=== PATIENT | female | born 1975 | race Caucasian/White ===

== ENCOUNTER → 2018-12-24 | Outpatient (CLI) | payer OTHER, SELFPAY ==
--- NOTE | 2018-12-24 11:14 | US_ITS ---
STUDY: ULTRASOUND OF THE FEMALE PELVIS - COMPLETE REASON FOR EXAM: Female, 43 years old. Abnormal bleeding LMP: 12/24/2018 TECHNIQUE: Transabdominal and Transvaginal TECHNICAL QUALITY: Adequate. COMPARISON: None. FINDINGS: The uterus is anteverted and is in a midline position. The uterus measures 9.7 x 6.0 x 5.1 cm. The endometrium measures 6.8 mm in thickness, and is hyperechoic. There is no demonstrated endometrial mass. There is uterine fibroid measuring 3.3 x 3.5 x 3.8 cm. I.U.D. - The patient does not have an I.U.D. The right ovary is visualized. The right ovary measures 3.1 x 2.1 x 1.6 cm. There is no right ovarian cyst or ovarian mass. There is no visualized right adnexal mass or complex lesion. There is normal arterial and normal venous vascularity. The left ovary is visualized. The left ovary measures 2.7 x 2.1 x 1.2 cm. There is no left ovarian cyst or ovarian mass. There is no visualized left adnexal mass or complex lesion. There is normal arterial and normal venous vascularity. There is no fluid in the cul-de-sac. Polycystic ovary disease: No. US/Pelvic (Non ) IMPRESSION: There is a uterine fibroid measuring 3.3 x 3.5 x 3.8 cm. The ovaries appear normal. There is no fluid in the cul-de-sac. Electronically Signed: Jared Cole MD at 16:31 EDT , Service support ,
--- NOTE | 2018-12-24 11:14 | US_ITS ---
STUDY: ULTRASOUND OF THE FEMALE PELVIS - COMPLETE REASON FOR EXAM: Female, 43 years old. Abnormal bleeding LMP: 12/24/2018 TECHNIQUE: Transabdominal and Transvaginal TECHNICAL QUALITY: Adequate. COMPARISON: None. FINDINGS: The uterus is anteverted and is in a midline position. The uterus measures 9.7 x 6.0 x 5.1 cm. The endometrium measures 6.8 mm in thickness, and is hyperechoic. There is no demonstrated endometrial mass. There is uterine fibroid measuring 3.3 x 3.5 x 3.8 cm. I.U.D. - The patient does not have an I.U.D. The right ovary is visualized. The right ovary measures 3.1 x 2.1 x 1.6 cm. There is no right ovarian cyst or ovarian mass. There is no visualized right adnexal mass or complex lesion. There is normal arterial and normal venous vascularity. The left ovary is visualized. The left ovary measures 2.7 x 2.1 x 1.2 cm. There is no left ovarian cyst or ovarian mass. There is no visualized left adnexal mass or complex lesion. There is normal arterial and normal venous vascularity. There is no fluid in the cul-de-sac. Polycystic ovary disease: No. US/Transvaginal Non- IMPRESSION: There is a uterine fibroid measuring 3.3 x 3.5 x 3.8 cm. The ovaries appear normal. There is no fluid in the cul-de-sac. Electronically Signed: Jared Cole MD at 16:31 EDT , Service support ,
== END | disposition home or self-care (01) ==
LOC: US 11:11
PROVIDERS: Family Provider Family Medicine; PCP Family Medicine; Referring Provider Nurse Practitioner; Visit Provider Nurse Practitioner
DX: N93.9 Abnormal uterine and vaginal bleeding, unspecified (principal)
CPT/HCPCS: 76830; 76856; 93976

== ENCOUNTER → 2020-01-29 07:49 | Outpatient (CLI) | payer OTHER, SELFPAY ==
--- NOTE | 2020-01-29 07:55 | US_ITS ---
STUDY: ULTRASOUND OF THE FEMALE PELVIS - COMPLETE REASON FOR EXAM: Female, 45 years old. ENLARGED UTERUS LMP: TECHNIQUE: Transabdominal and Transvaginal TECHNICAL QUALITY: Adequate. COMPARISON: None. FINDINGS: The uterus is anteverted and is in a midline position. The uterus measures 9.8 x 6.4 x 5.3 cm. Normal uterine cervix. The endometrium measures 5 mm in thickness, and is hyperechoic. There is no demonstrated endometrial mass. There is there is 4.3 x 4.6 x 4.4 heterogeneous myometrial mass consistent with a fibroid. I.U.D. - The patient does not have an I.U.D. The right ovary is visualized. The right ovary measures 2.4 x 2.8 x 2.2 cm. There is no right ovarian cyst or ovarian mass. There is no visualized right adnexal mass or complex lesion. There is normal arterial and normal venous vascularity. The left ovary is visualized. The left ovary measures 2.8 x 1.8 x 1.8 cm. There is no left ovarian cyst or ovarian mass. There is no visualized left adnexal mass or complex lesion. There is normal arterial and normal venous vascularity. There is no fluid in the cul-de-sac. The pre void volume of the bladder was 496 ml. US/Pelvic (Non ) IMPRESSION: There is there is 4.3 x 4.6 x 4.4 heterogeneous myometrial mass consistent with a fibroid. Electronically Signed: Andrew Cortes, at 14:23 EDT Tel , Service support ,
--- NOTE | 2020-01-29 07:55 | US_ITS ---
STUDY: ULTRASOUND OF THE FEMALE PELVIS - COMPLETE REASON FOR EXAM: Female, 45 years old. ENLARGED UTERUS LMP: TECHNIQUE: Transabdominal and Transvaginal TECHNICAL QUALITY: Adequate. COMPARISON: None. FINDINGS: The uterus is anteverted and is in a midline position. The uterus measures 9.8 x 6.4 x 5.3 cm. Normal uterine cervix. The endometrium measures 5 mm in thickness, and is hyperechoic. There is no demonstrated endometrial mass. There is there is 4.3 x 4.6 x 4.4 heterogeneous myometrial mass consistent with a fibroid. I.U.D. - The patient does not have an I.U.D. The right ovary is visualized. The right ovary measures 2.4 x 2.8 x 2.2 cm. There is no right ovarian cyst or ovarian mass. There is no visualized right adnexal mass or complex lesion. There is normal arterial and normal venous vascularity. The left ovary is visualized. The left ovary measures 2.8 x 1.8 x 1.8 cm. There is no left ovarian cyst or ovarian mass. There is no visualized left adnexal mass or complex lesion. There is normal arterial and normal venous vascularity. There is no fluid in the cul-de-sac. The pre void volume of the bladder was 496 ml. US/Transvaginal Non- IMPRESSION: There is there is 4.3 x 4.6 x 4.4 heterogeneous myometrial mass consistent with a fibroid. Electronically Signed: Andrew Cortes, at 14:23 EDT Tel , Service support ,
== END ==
PROVIDERS: PCP Family Medicine
DX: N85.2 Hypertrophy of uterus (principal)
CPT/HCPCS: 76830; 76856

== ENCOUNTER 2020-05-27 16:00 | Observation (INO) | payer OTHER, SELFPAY ==
--- NOTE | 2020-05-21 16:35 | HP.PCM_ITS ---
History and Physical Date of Admission: 05/27/20 Office Visit 05/19/2020 OB/Gynecology Sandee Randolph NEWSPAPER COPY EDITOR Abnormal uterine bleeding (AUB) +2 more Dx Pre-Op Visit; Referred by Sandee Randolph Reason for Visit Progress Notes Expand AllCollapse All Pre-Op History and Physical ? HPI: The patient is a 45 year old female presenting for pre-operative visit. She is scheduled for TLH, Bilateral salpingectomy cystoscopy for AUB fibroid uterus (submucosal) on 05/27/20. Procedure discussed along with risks, benefits and complications. Other alternatives discussed for management. Consent form signed? Yes. ? ? PAST MEDICAL HISTORY PAST MEDICAL HISTORY Diagnosis Date ? Hyperlipidemia ? ? ? PAST SURGICAL HISTORY PAST SURGICAL HISTORY Procedure Laterality Date ? COLONOSCOP W/ OR W/O BRS SPEC ? 01/12/16 ? Colonoscopy mac ? COLONOSCOP W/ OR W/O BRS SPEC ? 01/13/2019 ? Colonoscopy ? PAST SURGICAL HISTORY OF Left , , 2014 ? Fiboadenoma removed from left breast ? TONSILLECTOMY HX ? 1992 ? ? ? CURRENT MEDICATIONS Current Outpatient Medications Medication Sig Dispense Refill ? Fe gluconate/vit C/folic acid (IRON-C ORAL) Take by mouth. 2-3 times a week ? ? ? vitamin b complex (B-COMPLEX) tab 2 x a week ? ? ? Calcium Carb-Vit D3-Magnesium (CORAL CALCIUM) 250-200-125 mg-unit-mg cap 1,000 IU 3 x a week ? 0 ? No current facility-administered medications for this visit. ? ? ALLERGIES: Asprin [Aspirin] ? PERSONAL HISTORY: SOCIAL HISTORY Social History ? Tobacco Use ? Smoking status: Never Smoker ? Smokeless tobacco: Never Used Substance Use Topics ? Alcohol use: No ? Drug use: No ? FAMILY HISTORY: FAMILY HISTORY FAMILY HISTORY Problem Relation Age of Onset ? Hypertension Mother ? ? Colon Cancer Father 70 ? Hypertension Maternal Grandmother ? ? Heart Maternal Grandmother 56 ? Colon Cancer Paternal Grandmother 82 ? other (Stomach Cancer) Paternal Grandfather 77 ? Colon Cancer Paternal Aunt 52 ? ? REVIEW OF SYMPTOMS: negative except as noted above PHYSICAL EXAMINATION: ? VITALS: Blood pressure 138/74, height 4' 11.5 (1.511 m), weight 119 lb (54 kg), last menstrual period 05/11/2020. ? GENERAL: The patient is well nourished, well hydrated in no acute distress. , The patient is oriented to time, place, and person. NECK: full range of motion Neuro: Alert and oriented x 3 ? PELVIC ULTRASOUND: uterus 9.7cm with 3.4cm submucosal fibroid. ? IMPRESSION: Fibroid uterus, AUB ? PLAN: TLH, Bilateral salpingectomy, Cystoscopy. ERAS reviewed Will order POST OP MEDS Pt has been counseled on risks/benefits and alternatives of surgery including but not limited to anesthesia, bleeding, infection, injury to pelvic structures including bowel, bladder, ureters and vessels. Pt wishes to proceed with surgery at this time. COVID and elective surgery reviewed with patient ? I have reviewed and updated past medical and surgical history, medications and allergies Sandee Randolph MD Procedure Criteria Procedure Type: Elective COVID Risk Discussion: The surgeon/proceduralist and patient have discussed in detail the risk of exposure to and/or potential harm posed by the COVID-19 virus with having a surgery/procedure at this time versus the risk of delaying the surgery/procedure. It is not possible to know either the risk of delaying the surgery or procedure or chance of getting an infection with perfect accuracy, but a joint decision was made between the patient and the surgeon/proceduralist to proceed at this time with the scheduled surgery/procedure as indicated on the consent form.
[2020-05-25 13:55] LABS: Hematocrit 38.8 % (37-47); Hemoglobin 12.5 g/dL (12.0-15.0); Mean Corp Hgb Conc 32.2 g/dL (32-36); Mean Corpuscular Volume 96.3 fL (81-99); Mean Platelet Vol. 10.4 fl (6.2-12.0); Platelet Count 306 K/mm3 (150-450); RBC Distribution Width CV 13.7 % (11.6-14.6); RBC Distribution Width SD 48.5 fl (35.1-43.9); Red Blood Count 4.03 M/mm3 (4.2-5.4); White Blood Count 5.3 K/mm3 (4.4-11.0)
[2020-05-25 14:02] LABS: Prothrombin Time (Protime)PT. 12.6 SECONDS (11.7-14.9)
[2020-05-25 14:03] LABS: Partial Thromboplast Time 29.2 Seconds (24.1-36.2)
[2020-05-25 14:43] LABS: Magnesium 2.1 mg/dL (1.6-2.6); Thyroid Stim Hormone (TSH) 1.41 uIU/mL (0.358-3.74)
[2020-05-27] VITALS (19 sets, daily range): BP systolic 90–130; BP diastolic 41–69; PULSE 67–91; RESP 16–122; TEMP 36.5–37.7; O2SAT 97–100; BMI 23.4
--- NOTE | 2020-05-27 | HYST_PTH ---
PATIENT: AMADO ESCALANTE LOC: [facility] U#:[id number] AGE/SX: 45/F ROOM: [facility]314 RE05/27/[address]: Dr. Sandee Saleem, MDDOB: 1975 BED: 1 DIS: 05/28/2020 SPEC #: [id number] RECD: 05/27/20 11:23 STATUS: TODD COLE #: [id number] FILIBERTO: 05/27/20 00:[address]: Sandee Saleem DEPT: SURGICAL PATHOLOGY RECD BY: Yoni Carreno ENTERED: 05/27/20 13:03 SP TYPE: HYSTERECT OTHR DR: Dr. Svetlana Bourgeois MD Tissues: Uterus, NOS Procedures: Surgery Specimen Level V HEADER OPERATION: Hysterectomy, TLH, salpingectomy, cystoscopy PRE-OP DIAGNOSIS: Abnormal uterine bleeding TISSUE SUBMITTED: Uterus, bilateral fallopian tubes MICROSCOPIC DIAGNOSIS Uterus and bilateral fallopian tubes, hysterectomy and bilateral salpingectomy: Cervix - mild chronic cystic cervicitis. Endometrium - proliferative endometrium. Myometrium - intramural and submucosal leiomyomas (largest measuring 3.8 cm in greatest dimension). Bilateral fallopian tubes - no pathologic diagnosis. Right paratubal cyst. SJ:molina 05/28/20 MICROSCOPIC DESCRIPTION Slides are reviewed. GROSS DESCRIPTION Received in fixative is one container labeled with the patient's name and designated uterus. The specimen consists of a uterus with attached cervix and attached right and left fallopian tubes. The uterus with cervix measures 9.5 x 6.5 x 5 cm and weighs 153 gm. The ectocervix is unremarkable. The endocervical canal measures 3.3 cm in length and is grossly unremarkable. The triangular endometrial cavity measures 4.5 x 3.6 cm. The velvety, rojo endometrium measures up to 0.2 cm in average thickness. The myometrium measures 2 cm in average thickness and contains multiple rubbery rojo-white nodules ranging in size from 0.7 to 3.8 cm. The nodules are intramural and submucosal in location. The right and left fallopian tubes are similar in appearance averaging 6 cm in length and 0.7 cm in average diameter. Both have normal fimbriated ends. The soft tissue adjacent to the fimbriated end in the right fallopian right fallopian tube contains a paratubal cyst measuring 1 cm and containing clear fluid. Instructional Support Technician sections are submitted in ten cassettes as follows: 1 - anterior cervix, 2 - posterior cervix, 3?& 4 - anterior uterine wall, 5 & 6 - posterior uterine wall, 7 - largest myometrial mass, 8 - smaller myometrial masses, 9 - right fallopian tube and paratubal cyst, 10 - left fallopian tube. / AM:molina 05/27/20 TC:1 CPT: 05301
[2020-05-27 06:41] LABS: Internal QC Validated? YES +Cl - CLEAR BKGD; Pregnancy, Urine Negative Negative
[2020-05-27] MEDS: dexAMETHasone 10 MG/ML Vial 8 MG IV (06:47)
[2020-05-27] MEDS: Enoxaparin 40 MG/0.4 ML Syringe SC (06:48)
[2020-05-27] MEDS: Scopolamine 1mg/72hr Patch 1 PATCH TD (06:50)
[2020-05-27 06:56] LABS: Bedside Glucose 85 mg/dL (70-110)
[2020-05-27] MEDS: Acetaminophen 500 MG Tablet 1000 MG PO ×3 (06:56→18:14)
[2020-05-27] MEDS: Celecoxib 200 MG Capsule 400 MG PO (06:56)
[2020-05-27] MEDS: Phenazopyridine 95 MG Tablet 190 MG PO (06:56)
[2020-05-27] MEDS: Gabapentin 600 MG Tablet PO (06:56)
[2020-05-27] MEDS: Lactated Ringers 1,000 ML 40 ML IV (06:57)
[2020-05-27] MEDS: Cefazolin 2 GM in 0.9% Normal Saline 100 ML IV (07:33)
[2020-05-27] MEDS: Bupivacaine Mpf 0.5% 30 ML VIAL (07:56)
[2020-05-27] MEDS: Lactated Ringers 1,000 ML 70 ML IV ×3 (09:15→14:04)
--- NOTE | 2020-05-27 10:00 | PCM.OPRPT ---
Report of Operation Date of Procedure: 05/27/20 - start: end 1001 Pre-Operative Diagnosis: aub, fibroid uterus Post-Operative Diagnosis: same Surgery/Procedure Performed:: TLH, Bilateral salpingectomy, Cystoscopy Description of Surgical Findings:: uterus, tubes and ovaries appear normal. pointer machine operator: Rebeca Chavez Type of Anesthesia:: General Special Medications: 0.5% marcaine Specimen's removed: Uterus, cervix, bilatera tubes Drains: None Estimated Blood Loss (mL): 100 Fluids Replaced: 1700 Description of Procedure: Patient take to OR and prepped and draped in usual sterile fashion in dorsal lithotomy position with her arms tucked in a neurologically safe and neutral position. The uterus sounded to 9 cm. The children's librarian uterine manipulator was sutured into place at 12:00 position and monae were placed. Attention was turned to the abdomen. All port sites were infiltrated with 0.5% marcaine before the incisions were made. The anterior abdominal wall was tented up with towel clamps and using a direct entry approach a 5 mm intraumbilical port was placed. Intraperitoneal placement was confirmed with the laparoscope and the pneumoperitoneum was created. The patient was placed in Trendelenburg and 5 mm right and left lower quadrant ports were placed under direct visualization. Air seal rapid insufflator was used. The bowel was swept away. Ovaries appeared normal. The mesosalpinx starting at fimbriated end were grasped, clamped, sealed and transected with the Ligasure. The round ligaments were divided. The anterior peritoneum was dissected down to create the bladder flap with blunt dissection and the LigaSure. The uterine arteries were isolated, clamped, sealed and cut. There was minimal back bleeding from the uterus. Straight bites on uterine arteries performed to drop them off the cuff. The manipulator was used as guide to create colpotomy using monopolar tip of LigaSure. once specimen was removed attention was turned to vaginal portion. The specimen was handed off. The cuff was closed with interrupted 0-vicryl figure of 8 sutures. Small oozing on cuff- posterior cuff was run with 2-0 vicryl. Cystoscopy was performed bilateral ureters were visualized with good efflux. bladder was intact. monae replaced and sponge stick placed in vagina. The pneumoperitoneum was recreated. Oozing on right side and middle of cuff. multiple figure of eight sutures placed below to help achieve hemostasis. Hemalock clamps were placed on right side of cuff and good hemostasis was appreciated. Floseal placed where the clamps were placed. Giuseppe was placed over other pedicles. Areas were monitored and appeared to be hemostatic. The skin incisions were closed with skin glue and 3-0 monocryl in the LLQ port site. Cystoscopy was repeat and again bilateral efflux noted and bladder intact. The vaginal sweep was completed by me negative . Grafts/Implants Used: hemalock clips Grafts/Implants Used: hemalock clips - Complications none - Admit VTE Documentation VTE Present on Admission: Yes VTE Mechan Device Prophylaxis: SCD's VTE Pharm Prophylaxis ordered?: Yes
--- NOTE | 2020-05-27 10:09 | DCINST_ITS ---
Discharge Diet: No Restrictions Discharge Activity: Return to Normal Activity, May Not Drive - while taking narcotic pain medications., May Shower May shower in (days): 1 May resume sexual activity in: 6-8 weeks Lifting Restrictions: 20 Call your doctor if your incision/area has: Continuous Slow Oozing, Sudden Increased Bleeding, Increased Pain/ Swelling, Increased Redness, Foul Smelling Discharge Call your doctor if you observe: Fever of 101 or Higher, Inability to urinate, Inability to have a bowel movement, Using more than one pad per hour Cleanse incision/area with: Keep Dressing Clean & Dry, - - do not pick off skin glue- you may shower, let soap and water run over incision sites. dab dry. Allergies/Adverse Reactions: Allergies aspirin Adverse Reaction (Verified 05/20/20 09:18) Nausea/Vom/Diarrhea Medications to take at Discharge Calcium Carbonate/Magnesium Ox [Super Zander-Mag Tablet] 1 ea PO MOWEFR 05/20/20 Cholecalciferol (Vitamin D3) [Vitamin D3] 2,000 unit PO TUTH 05/20/20 Ferrous Sulfate [Iron] 325 mg PO DAILY 05/20/20 Multivitamin with Minerals [Multiple Vitamin] 1 ea PO DAILY 05/20/20 Vitamin B Complex 1 ea PO MOWEFR 05/20/20 Primary Care Physician: Svetlana Bourgeois MD [Primary Care Provider] - Test Results: Test results from this visit will be discussed in further detail at your follow- up appointment, if applicable. Please Follow Up With: Sandee Saleem MD When: 2 weeks post op [phone]
[2020-05-27] MEDS: Ketorolac 30 MG/ML Syringe IV ×2 (11:29→18:14)
[2020-05-27] MEDS: oxyCODONE 5 MG Tablet PO (13:00)
[2020-05-27 14:59] LABS: Hematocrit 30.6 % (37-47); Hemoglobin 9.7 g/dL (12.0-15.0); Mean Corp Hgb Conc 31.7 g/dL (32-36); Mean Corpuscular Hgb 30.4 pg (27.0-32.0); Mean Corpuscular Volume 95.9 fL (81-99); Mean Platelet Vol. 10.4 fl (6.2-12.0); Platelet Count 227 K/mm3 (150-450); RBC Distribution Width CV 13.8 % (11.6-14.6); RBC Distribution Width SD 48.7 fl (35.1-43.9); Red Blood Count 3.19 M/mm3 (4.2-5.4); White Blood Count 11.2 K/mm3 (4.4-11.0)
[2020-05-27 19:20] LABS: Absolute Lymphocyte Count 0.35 X10^3/uL (0.83-4.51); Absolute Neutrophil Count 8.2 X10^3/uL (2.0-7.7); Hematocrit 30.2 % (37-47); Hemoglobin 9.7 g/dL (12.0-15.0); Lymphocyte # 0.35 X10^3/ul (4.0); Lymphocyte % 3.9 % (19-41); Mean Corp Hgb Conc 32.1 g/dL (32-36); Mean Corpuscular Volume 96.5 fL (81-99); Mean Platelet Vol. 9.9 fl (6.2-12.0); Monocyte# 0.29 X10^3/uL; Monocyte% 3.3 % (0-10); NRBC Flagged by Analyzer 0 % (0-5); Neutrophil % 92.5 % (47-70); POSITIVE DIFFERENTIAL YES; Platelet Count 229 K/mm3 (150-450); RBC Distribution Width CV 13.9 % (11.6-14.6); RBC Distribution Width SD 49.1 fl (35.1-43.9); Red Blood Count 3.13 M/mm3 (4.2-5.4); White Blood Count 8.9 K/mm3 (4.4-11.0)
[2020-05-27 19:29] LABS: Differential Indicated SCAN CRITERIA MET
[2020-05-27 20:21] LABS: Anisocytosis RARE; Platelet Estimate ADEQUATE (ADEQ); Red Cell Morphology N CHROM NORMAL (NORM C&C)
[2020-05-27 20:22] LABS: Macrocytosis RARE
[2020-05-27] MEDS: Docusate Sodium 100 MG Capsule PO (22:09)
[2020-05-28] MEDS: Ketorolac 30 MG/ML Syringe IV ×2 (00:53→06:21)
[2020-05-28] MEDS: Acetaminophen 500 MG Tablet 1000 MG PO ×2 (00:53→07:59)
[2020-05-28 04:19] VITALS: BP 109/58; PULSE 83; RESP 18; TEMP 36.8; O2SAT 99
[2020-05-28] MEDS: Lactated Ringers 1,000 ML 70 ML IV (04:24)
--- NOTE | 2020-05-28 04:53 | PCS.PANDOC ---
PANDEMIC DOCUMENTATION INITIATED: Date: 05/27 Time: 1899
[2020-05-28] MEDS: 0.9% Saline Lock 10 ML Syringe IV (06:21)
--- NOTE | 2020-05-28 06:59 | NURSING ---
0600 dose of Tylenol 1,000mg for 05/28 is late d/t the maximum dosage of 4,000mg per 24 hours. unable to administer at this time
[2020-05-28 07:21] VITALS: O2SAT 98
--- NOTE | 2020-05-28 07:36 | PCM.PN.OB ---
Subjective: Patient seen at bedside, doing well. Patient reports improvement in dizziness. Ambulating well. Voiding well. Not passing any flatus at this point but is feeling like she will soon. Patient reports no nausea or vomiting. Patient is tolerating diet. - Physical Exam Vitals/I&O's: Vital Signs Temp Pulse Resp BP Pulse Ox 98.3 F 83 18 109/58 L 99 05/28/20 04:19 05/28/20 04:19 05/28/20 04:19 05/28/20 04:19 05/28/20 04:19 Oxygen Flow Rate (L/min) 6 Oxygen Delivery Method Room Air Weight: 53.6 kg Body Mass Index (BMI) 23.4 Intake and Output for Last 24 Hours 05/26/20 05/27/20 05/28/20 23:59 23:59 23:59 Intake Total 3263 / 3263 1993.83 / 1993.83 Output Total 1400 / 1400 600 / 600 Balance 1863 / 1863 1394.83 / 1394.83 General: Alert, Oriented x3 Abdomen: Soft, Non-Distended, - - appropriately tender. Incision sites are dry and intact Extremities: No Calf Tenderness Neurological: Cranial nerves II-XII grossly intact Microbiology Past 72 Hours 05/25/20 13:15 Interface Orders SARS-CoV-2 Antigen (Rapid) - Final Laboratory Results 05/27/20 14:47: WBC 11.2 H, RBC 3.19 L, Hgb 9.7 L, Hct 30.6 L, MCV 95.9, MCH 30.4, MCHC 31.7 L, RDW Std Deviation 48.7 H, RDW Coeff of Anil 13.8, Plt Count 227, MPV 10.4 05/27/20 19:11: WBC 8.9, RBC 3.13 L, Hgb 9.7 L, Hct 30.2 L, MCV 96.5, MCH 31.0, MCHC 32.1, RDW Std Deviation 49.1 H, RDW Coeff of Anil 13.9, Plt Count 229, MPV 9.9, Immature Gran % (Auto) 0.300, Neut % (Auto) 92.5 H, Lymph % (Auto) 3.9 L, Toombs % (Auto) 3.3, Eos % (Auto) 0.0, Baso % (Auto) 0.0, Absolute Neuts (auto) 8.2 H, Absolute Lymphs (auto) 0.35 L, Nucleated RBC % 0, Differential Comment SEE COMMENT, Platelet Estimate ADEQUATE, RBC Morphology N CHROM, Anisocytosis RARE, Macrocytosis RARE 05/28/20 07:14: WBC Pending, RBC Pending, Hgb Pending, Hct Pending, MCV Pending, MCH Pending, MCHC Pending, RDW Std Deviation Pending, RDW Coeff of Anil Pending, Plt Count Pending, Neut % (Auto) Pending, Absolute Neuts (auto) Pending Current Medications Acetaminophen (Acetaminophen 500 Mg Tablet) 1,000 mg PO Q6 [facility] Last Admin: 05/28/20 00:53 Dose: 1,000 mg Documented by: Docusate Sodium (Docusate Sodium 100 Mg Capsule) 100 mg PO BID [facility] Last Admin: 05/27/20 22:09 Dose: 100 mg Documented by: Lactated Ringer's () 1,000 mls @ 70 mls/hr IV .[id number] [facility] Stop: 05/28/20 10:11 Last Admin: 05/28/20 04:24 Dose: 70 mls/hr Documented by: Insulin Human Lispro (Insulin Lispro 100 Unit/Ml Insuln.Pen) 0 unit SC Q4H PRN PRN; Protocol PRN Reason: BG >/= 180, SEE PROTOCOL Ketorolac Tromethamine (Ketorolac 30 Mg/Ml Syringe) 30 mg IV Q6 [facility] Stop: 05/28/20 18:01 Last Admin: 05/28/20 06:21 Dose: 30 mg Documented by: Magnesium Chloride (Magnesium Chloride 64 Mg Delay Rel.Tablet) 128 mg PO DAILY PRN PRN PRN Reason: Constipation Nutritional Formula (Lactose Free) (Ensure Enlive 120 Ml Liquid) 120 ml PO TIDCM [facility] Last Admin: 05/27/20 17:58 Dose: Not Given Documented by: Ondansetron HCl (Ondansetron Odt 4 Mg Tablet) 4 mg PO Q6H PRN PRN PRN Reason: NAUSEA Oxycodone HCl (Oxycodone 5 Mg Tablet) 5 - 10 mg PO Q4H PRN PRN PRN Reason: Pain Score 4-10 Last Admin: 05/27/20 13:00 Dose: 5 mg Documented by: Sodium Chloride (0.9% Saline Lock 10 Ml Syringe) 10 - 40 ml IV UD PRN PRN Reason: SALINE FLUSH Last Admin: 05/28/20 06:21 Dose: 10 ml Documented by: Medical Necessity - Tobacco Use Smoking Status: Never smoker Tobacco Use: Non-smoker Assessment/Plan POD#1 s/p TLH, Bilateral salpingectomy, cysto ambulation pain mgmt regular diet follow up repeat cbc anticipate dc home after breakfast and results
[2020-05-28 07:38] LABS: Absolute Lymphocyte Count 1.16 X10^3/uL (0.83-4.51); Absolute Neutrophil Count 6.1 X10^3/uL (2.0-7.7); Basophil# 0.01 X10^3/uL; Basophil% 0.1 % (0-1); Eosinophil# 0.02 X10^3/uL; Eosinophils% 0.3 % (0-5); Hematocrit 29.7 % (37-47); Hemoglobin 9.3 g/dL (12.0-15.0); Lymphocyte # 1.16 X10^3/ul (4.0); Lymphocyte % 14.6 % (19-41); Mean Corp Hgb Conc 31.3 g/dL (32-36); Mean Corpuscular Hgb 30.3 pg (27.0-32.0); Mean Corpuscular Volume 96.7 fL (81-99); Mean Platelet Vol. 10.5 fl (6.2-12.0); Monocyte% 7.6 % (0-10); NRBC Flagged by Analyzer 0 % (0-5); Neutrophil # 6.13 X10^3/uL (2.7-7.7); Neutrophil % 77.1 % (47-70); Platelet Count 243 K/mm3 (150-450); RBC Distribution Width CV 14.1 % (11.6-14.6); RBC Distribution Width SD 49.7 fl (35.1-43.9); Red Blood Count 3.07 M/mm3 (4.2-5.4); White Blood Count 7.9 K/mm3 (4.4-11.0)
[2020-05-28 09:20] VITALS: BP 115/52; PULSE 69; RESP 18; TEMP 37.1; O2SAT 99
[2020-05-28 09:21] VITALS: PULSE 69
[2020-05-28] MEDS: Docusate Sodium 100 MG Capsule PO (11:00)
[2020-05-28 11:37] VITALS: BP 128/60; PULSE 80; RESP 16; TEMP 36.9; O2SAT 100
== END 2020-05-28 11:42 | disposition home or self-care (01) ==
LOC: MS3 05-28 06:41
PROVIDERS: Anesthesiology; Admitting Provider Obstetrics & Gynecology; PCP Family Medicine; Referring Provider Obstetrics & Gynecology; Visit Provider Obstetrics & Gynecology
PROC: 0UT94ZZ Resection of Uterus, Percutaneous Endoscopic Approach (ICD-10-PCS; CPT 58571; principal; 2020-05-27 07:10)
DX: D25.1 Intramural leiomyoma of uterus (principal); D25.0 Submucous leiomyoma of uterus; N72 Inflammatory disease of cervix uteri; N83.8 Other noninflammatory disorders of ovary, fallopian tube and broad ligament; E78.5 Hyperlipidemia, unspecified; Z20.828 Contact with and (suspected) exposure to other viral communicable diseases; R42 Dizziness and giddiness; D64.9 Anemia, unspecified; E07.9 Disorder of thyroid, unspecified; Z79.899 Other long term (current) drug therapy; G25.81 Restless legs syndrome
CPT/HCPCS: 58571; 36415; 81025; 82962; 83735; 84443; 85025; 85027; 85610; 85730; 86850; 86900; 86901; 87426; 88307; 94762; 96374; 96376; 99218; C9803; J7120; A4216; G0378; G0379; J2405; J3475

== ENCOUNTER → 2022-11-21 | Outpatient (CLI) | payer OTHER, SELFPAY ==
[2022-11-21 12:19] LABS: Absolute Lymphocyte Count 0.99 X10^3/uL (0.83-4.51); Absolute Neutrophil Count 2.9 X10^3/uL (2.0-7.7); Basophil# 0.04 X10^3/uL; Basophil% 0.9 % (0-1); Eosinophil# 0.09 X10^3/uL; Eosinophils% 2.1 % (0-5); Hematocrit 45.5 % (37-47); Hemoglobin 14.9 g/dL (12.0-15.0); Lymphocyte # 0.99 X10^3/ul (0.83-4.51); Mean Corp Hgb Conc 32.7 g/dL (32-36); Mean Corpuscular Hgb 33.2 pg (27.0-32.0); Mean Corpuscular Volume 101.3 fL (81-99); Mean Platelet Vol. 10.8 fl (6.2-12.0); Monocyte# 0.25 X10^3/uL; Monocyte% 5.8 % (0-10); NRBC Flagged by Analyzer 0 % (0-5); Neutrophil # 2.91 X10^3/uL (2.7-7.7); Neutrophil % 67.7 % (47-70); Platelet Count 294 K/mm3 (150-450); RBC Distribution Width CV 11.5 % (11.6-14.6); RBC Distribution Width SD 42.6 fl (35.1-43.9); Red Blood Count 4.49 M/mm3 (4.2-5.4); White Blood Count 4.3 K/mm3 (4.4-11.0)
[2022-11-21 12:52] LABS: Vitamin D,25 Hydroxy 63.1 ng/mL
[2022-11-21 12:54] LABS: Thyroid Stim Hormone (TSH) 1.75 uIU/mL (0.358-3.74)
[2022-11-21 14:50] LABS: Vitamin B12 386 pg/mL (211-911)
== END | disposition home or self-care (01) ==
LOC: MFPLAB 10:38
PROVIDERS: PCP Family Medicine; Visit Provider Family Medicine
DX: Z00.00 Encounter for general adult medical examination without abnormal findings (principal); L65.9 Nonscarring hair loss, unspecified
CPT/HCPCS: 36415; 82306; 82607; 84443; 85025